=== PATIENT | female | born 1975 | race Caucasian/White ===

== ENCOUNTER 2019-10-19 05:19 | Inpatient (IN) | payer BC ==
[~2019-10-19] VITALS: Ht 170.2 cm; Wt 132.0 kg
[2019-10-19] VITALS (13 sets, daily range): BP systolic 125–186; BP diastolic 65–93
[2019-10-19] MEDS ORDERED: LR 1000ml 1,000 ML IVLG SCH (06:53)
--- NOTE | 2019-10-19 06:57 | Immediate Post-Op Evaluation ---
Immediate Post-Op Evalulation Immediate Post-Op Evalulation Procedure: Supracervical Open Hysterectomy with Bilateral Salpingectomy Date of Evaluation: Oct 19, 2019 Time of Evaluation: 12:05 IV Fluids: 1400 LR Blood Products: 0 Estimated Blood Loss: 75 Urinary Output: 200 Blood Pressure Systolic: 183 Blood Pressure Diastolic: 97 Pulse Rate: 92 Respiratory Rate: 16 O2 Sat by Pulse Oximetry: 98 Temperature (Fahrenheit): 97.3 Pain Score (1-10): 2 Nausea: No Vomiting: No Complications 0 Patient Status: awake, reacts, patent, extubated, none Hydration Status: adequate Dru Grams Ancef IV Given Within 1 Hr of Incision: Yes Time Given: 09:06 Gaston Ramsey MD Oct 19, 2019 06:57
[2019-10-19] MEDS ORDERED: cefOXitin Sod 2 GM in D5W 110 ML IVPB ONE (07:00)
[2019-10-19] MEDS ORDERED: Midazolam 2mg/2ml Inj IVP PRN (07:00)
[2019-10-19] MEDS ORDERED: HYDROcodone/Acetamin 7.5/325 tab ORAL PRN (07:00)
[2019-10-19] MEDS ORDERED: HYDROcodone/Acetamin 5/325 tab ORAL PRN ×2 (07:00→11:45)
[2019-10-19] MEDS ORDERED: Atropine Sulfate 0.4mg/ml inj IVP PRN (07:00)
[2019-10-19] MEDS ORDERED: LORazepam Inj 2mg/ml 1ml IV PRN (07:00)
[2019-10-19] MEDS ORDERED: oxyCODONE HCL/Acetaminophen 5/325mg ORAL PRN (07:00)
[2019-10-19] MEDS ORDERED: Ketorolac 30mg Inj IV PRN ×2 (07:00)
[2019-10-19] MEDS ORDERED: Meperidine 50mg/ml Inj(FOR RIGORS ONLY) IVP PRN (07:00)
[2019-10-19] MEDS ORDERED: Labetalol 5mg/ml 20ml vial IV PRN (07:00)
[2019-10-19] MEDS ORDERED: Metoclopramide 10mg/2ml Inj IVP PRN ×2 (07:00→11:45)
[2019-10-19] MEDS ORDERED: fentaNYL 100 mcg/2 mL IV PRN (07:00)
[2019-10-19] MEDS ORDERED: Acetaminophen (Non formulary) 100 ML IV ONE (07:00)
[2019-10-19] MEDS ORDERED: DiphenhydrAMINE 50mg/ml Inj IVP PRN (07:00)
[2019-10-19] MEDS ORDERED: PROVERA10 MG ORAL (07:03)
[2019-10-19] MEDS ORDERED: HYDROCODON-ACE1 EA16 ORAL (07:03)
[2019-10-19] MEDS ORDERED: AMLODIPINE BESY10 MG ORAL (07:03)
[2019-10-19] MEDS ORDERED: Duramorph PF 5mg/10ml amp ONE (07:06)
--- NOTE | 2019-10-19 07:18 | Anethesia Preoperative Eval ---
Anesthesia Pre-op PMH/ROS General Date of Evaluation: Oct 19, 2019 Time of Evaluation: 08:36 Anesthesiologist: Braulio ASA Score: ASA 3 Mallampati Score Class I : Soft palate, uvula, fauces, pillars visible Class II: Soft palate, uvula, fauces visible Class III: Soft palate, base of uvula visible Class IV: Only hard plate visible Mallampati Classification: Class III Surgeon: Zulma Diagnosis: Abd Pain Surgical Procedure: Supracervical Open Hysterectomy with Bilateral Salpingectomy Anesthesia History: none Family History: no anesthesia problems Allergies: Coded Allergies: No Known Allergies (Unverified , 10/14/19) Medications: see eMAR Patient NPO?: Yes NPO Date: Oct 18, 2019 NPO Time: 2100 Past Medical History Cardiovascular: Reports: HTN Gastrointestinal/Genitourinary: Reports: GERD Hematology/Immune: Reports: anemia Other: obesity - Morbid BMI 44 PSxH Narrative: Leep Anesthesia Pre-op Phys. Exam Physician Exam Last Vital Signs Date Time Temp Pulse Resp B/P (MAP) Pulse Ox O2 Delivery O2 Flow Rate FiO2 10/19/19 06:54 98.0 85 18 145/80 (101) 97 Constitutional: NAD Neurologic: CN 2-12 intact Cardiovascular: RRR Respiratory: CTA Gastrointestinal: S/NT/ND Airway Exam Mallampati Score: Class III MO: limited ROM: limited Teeth: missing, intact Anesthesia Pre-op A/P Risk Assessment & Plan Assessment: ASA 3 Plan: GA, SED, GlideScope Go Status Change Before Surgery: No Pre-Antibiotics Dru Grams Ancef IV Given Within 1 Hr of Incision: Yes Time Given: 09:06 Gaston Ramsey MD Oct 19, 2019 07:18
[2019-10-19] MEDS ORDERED: Lidocaine 1% MPF 10mg/ml 5ml ONE (07:22)
[2019-10-19] MEDS ORDERED: Dexamethasone 4mg/ml vial ONE (07:22)
[2019-10-19] MEDS ORDERED: Sodium Chloride 10ml vial INJ ONE (07:22)
[2019-10-19] MEDS ORDERED: fentaNYL 100 mcg/2 mL IV ONE ×3 (07:23→11:14)
[2019-10-19] MEDS ORDERED: Lidocaine 1% Plain 30 ml INJ ONE ×2 (07:24→10:36)
[2019-10-19] MEDS ORDERED: Ropivacaine 5mg/ml Vial 30ml INJ ONE (07:28)
[2019-10-19] MEDS ORDERED: LR 1000ml ONE (08:30)
[2019-10-19] MEDS ORDERED: Rocuronium Bromide 50mg/5ml Inj IV ONE (08:30)
[2019-10-19] MEDS ORDERED: Propofol 1,000mg/ 100ml btl IV ONE (08:30)
[2019-10-19] MEDS ORDERED: Sterile Water Irrig 1000ml IRRIG ONE (08:30)
[2019-10-19] MEDS ORDERED: NS Irrig 1000ml ONE (08:30)
--- NOTE | 2019-10-19 08:47 | Pre-Procedure Note/Attestation ---
Pre-Procedure Note/Attestation Complete Prior to Procedure Planned Procedure: not applicable Procedure Narrative: Supracervical Hysterectomy, bilateral Salpingectomy Indications for Procedure Pre-Operative Diagnosis: Large Uterine Myomas, severe menometrorrhagia, anemia Attestation I attest that I discussed the nature of the procedure; its benefits; risks and complications; and alternatives (and the risks and benefits of such alternatives ), prior to the procedure, with the patient (or the patient's legal solar sales representative and assessor). I attest that, if there was a reasonable possibility of needing a blood transfusion, the patient (or the patient's legal solar sales representative and assessor) was given the [facility] standardized written summary, pursuant to the [place] Blood Safety Act ([place] Health and Safety Code # 1645, as amended). I attest that I re-evaluated the patient just prior to the surgery and that there has been no change in the patient's H&P, except as documented below: Jonathan Maya MD Oct 19, 2019 08:47
--- NOTE | 2019-10-19 10:33 | NUR ---
*-* NO INSURANCE INFORMATION IN THE BAR UNABLE TO SEND CLINICALS OR REVIEWS *-*
[2019-10-19] MEDS ORDERED: Neostigmine 1mg/ml 10ml Inj ONE (10:51)
[2019-10-19] MEDS ORDERED: Glycopyrrolate 0.2mg/ml 1ml Vial ONE (10:51)
[2019-10-19] MEDS ORDERED: Milk of Magnesia 30ml Ud ORAL PRN (11:45)
--- NOTE | 2019-10-19 11:54 | Brief Operative Note ---
Immediate Post Operative Note Operative Note Chief Complaint: Uterine fibroids Pre-op Diagnosis: AUB-L (uterine fibroids) Procedure: Abdominal supracervical hysterectomy Post-op Diagnosis: Uterine fibroids, abnormal uterine bleeding (same as above) Post-op Diagnosis: same as pre-op Findings: consistent w/pre-op dx studies Surgeon: Jonathan Maya MD Paint Sprayer Sandblaster: Berenice Vickers MD Anesthesiologist: Gaston Ramsey MD Anesthesia: general, other - General and Spinal Specimen: yes Complications: none Fluids: 1400cc Crystalloid Estimated Blood Loss: volume - 75cc Drains: other - Durand catheter (200cc clear urine out at end of procedure) Packing: No Implant(s) used?: No Berenice Vickers M.D. Oct 19, 2019 11:54
[2019-10-19] MEDS: Hydromorphone 0.5mg/0.5ml inj IVP PRN ×2 (12:08→12:32)
--- NOTE | 2019-10-19 13:20 | NUR ---
NURSE NOTES: Patient arrived on unit via hospital bed. Stable. Denies pain or SOB. Patient oriented to room, call light, and unit. Patient instructed to use call light for assistance, verbalized understanding. Surgical dressing c/d/i. F/C secured to leg and patent. Patient is in bed in locked and lowest position with call light within reach. Will continue to monitor.
[2019-10-19] MEDS: HYDROcodone/Acetamin 10/325 tab ORAL PRN (14:33)
[2019-10-19] MEDS: Ketorolac 30mg Inj IM SCH ×2 (15:23→20:19)
[2019-10-19] MEDS: LR 1000ml 1,000 ML IV SCH ×2 (17:14→22:01)
[2019-10-19] MEDS: Docusate 100mg cap ORAL SCH (17:15)
[2019-10-19] MEDS: HYDROmorphone 1mg/ml Carpuject IVP PRN ×2 (17:21→23:44)
[2019-10-19] MEDS ORDERED: Ketorolac 30mg Inj IM SCH (18:00)
--- NOTE | 2019-10-19 19:27 | NUR ---
HAND-OFF: Report given to Fany DOLL. Patient is stable.
--- NOTE | 2019-10-19 19:30 | NUR ---
NURSE NOTES: Received report & pt from LAVON Byrne. Pt lying in bed, a&ox4, on O2 via NC @ 2LPM. No s/s of acute distress & c/o 6/10 pain at this time. Will give pain med when due & pt verbalized understanding. Surgical dressing C/D/I with icepack on. IV site intact with IVF running as ordered. Bed in lowest position, call light within reach. Will continue to monitor.
[2019-10-20] VITALS (9 sets, daily range): BP systolic 112–173; BP diastolic 60–88
[2019-10-20] MEDS: HYDROcodone/Acetamin 10/325 tab ORAL PRN ×4 (01:08→19:44)
[2019-10-20] MEDS: Ketorolac 30mg Inj IM SCH ×2 (02:55→08:59)
[2019-10-20] MEDS: HYDROmorphone 1mg/ml Carpuject IVP PRN ×4 (05:58→22:18)
[2019-10-20] MEDS: LR 1000ml 1,000 ML IV SCH ×3 (05:58→22:17)
--- NOTE | 2019-10-20 06:00 | NUR ---
NURSE NOTES: Removed basilio cath as ordered by . Toilet hat provided. Reminded pt to call RN of pt's first void. Pt verbalized understanding.
[2019-10-20 06:13] LABS: HEMATOCRIT 22.9 % (37.0-47.0); MEAN CORPUSCULAR VOLUME 70 FL (80-99); PLATELET COUNT 227 K/UL (150-450); RED BLOOD COUNT 3.28 M/UL (4.20-5.40); RED CELL DISTRIBUTION WIDTH 20.9 % (11.6-14.8); WHITE BLOOD COUNT 7.1 K/UL (4.8-10.8)
[2019-10-20 06:30] LABS: HEMOGLOBIN 6.8 G/DL (12.0-16.0)
[2019-10-20 06:39] LABS: ANION GAP 9 mmol/L (5-15); BLOOD UREA NITROGEN 13 mg/dL (7-18); CALCIUM 7.8 MG/DL (8.5-10.1); CARBON DIOXIDE 26 MMOL/L (21-32); CHLORIDE 103 MMOL/L (98-107); CREATININE 0.7 MG/DL (0.55-1.30); POTASSIUM 4.3 MMOL/L (3.5-5.1); SODIUM 138 MMOL/L (136-145)
--- NOTE | 2019-10-20 06:45 | NUR ---
NURSE NOTES: Received critical lab result for Hgb 6.8 from Sebas of lab. Called & paged Dr. Maya re: lab result. Awaiting call back. Charge nurse made aware.
--- NOTE | 2019-10-20 07:13 | NUR ---
HAND-OFF: Report given to LAVON Yuan. Rounds done. Told RN to f/u with Dr. Maya re: critical lab result Hgb 6.8
--- NOTE | 2019-10-20 07:15 | NUR ---
NURSE NOTES: Dr. Maya replied with, "Thanks". No new orders received at this time. AM RN made aware & also charge nurse Faith made aware
--- NOTE | 2019-10-20 07:15 | NUR ---
NURSE NOTES: WALKING ROUNDS DONE WITH OUTGOING RN. PATIENT ASLEEP BUT AROUSABLE. ABDOMINAL SURGICAL SITE ASSESSED; REMAINS C/D/I. SHE PAIN AT THIS TIME. RETURN DEMONSTRATION OF I/S SUCCESSFUL. QUESTIONS ANSWERED NEEDS MET AT THIS TIME. DISCUSSED PLAN OF CARE FOR THE DAY. VERBALIZED UNDERSTANDING. BED IN LOW AND LOCKED POSITION. CALL LIGHT WITHIN REACH.
[2019-10-20] MEDS: Docusate 100mg cap ORAL SCH ×2 (07:57→17:21)
--- NOTE | 2019-10-20 09:12 | NUR ---
CASE MANAGEMENT: INITIAL REVIEW 44YR OLD FEMALE HERE FOR ELECTIVE SURGERY CC: ABD PAIN; UTERINE FIBROIDS SI: AUB-L (UTERINE FIBROIDS) ;LARGE UTERINE MYOMAS, SEVERE MENOMETRORRHAGIA 98.0 85 18 145/80 97% ON RA IS: SUPRACERVICAL OPEN HYSTERECTOMY WITH BILATERAL SALPINGECTOMY : IN SURGERY NOW DCP: HOME WHEN MEDICALLY STABLE CASE MANAGEMENT: REVIEW 10/20/19 SI: POD#1 SP ABD SUPRACERVICAL HYSTERECTOMY 98.0 93 21 112/60 95% ON RA CA+7.8 H/H 6.8/22.9 IS: NORVASC PO QD TORADOL IM Q6HR : 3E MED SURG UNIT PLAN: ADI ENGLE
--- NOTE | 2019-10-20 09:45 | NUR ---
PT EVALUATION NOTE Patient seen for initial evaluation, see complete evaluation for details. Patient presents with generalized weakness and pain s/p surgical procedure which affects patient's ability to perform mobility tasks safely. Patient required min assist to come to sitting at the EOB and declined to participate in OOB activities due to pain. Patient will benefit from skilled inpatient PT intervention to address strength, balance and safety to return to prior level of function. Anticipate discharge home once medically cleared by MD. No DME needs anticipated at this time. Addendum: 10/20/19 at 1252 by EH WALTERS PT Amended: Links added.
--- NOTE | 2019-10-20 10:48 | General Progress Note ---
Progress Note Progress Note GYNECOLOGY PROGRESS NOTE - POD #1 44yo s/p supracervical hysterectomy, bilateral salpingectomy for AUB-L S: Patient having 9/10 pain, currently receiving Dilaudid. Has not ambulated. No flatus. Awaiting void. Some nausea last night, however tolerating regular diet without issue. O: Vitals reviewed, wnl Exam: Gen: NAD HEENT: OP clear, MMM CV: No tachycardia Pulm: No increased work of breathing Abd: soft, obese, mildly distended. Bandage removed, daniela c/d/i Ext: SCDs in place Labs: Test 10/20/19 04:55 White Blood Count 7.1 K/UL (4.8-10.8) Red Blood Count 3.28 M/UL (4.20-5.40) L Hemoglobin 6.8 G/DL (12.0-16.0) *L Hematocrit 22.9 % (37.0-47.0) L Mean Corpuscular Volume 70 FL (80-99) L Mean Corpuscular Hemoglobin 20.6 PG (27.0-31.0) L Mean Corpuscular Hemoglobin Concent 29.5 G/DL (32.0-36.0) L Red Cell Distribution Width 20.9 % (11.6-14.8) H Platelet Count 227 K/UL (150-450) Mean Platelet Volume 6.7 FL (6.5-10.1) Neutrophils (%) (Auto) % (45.0-75.0) Lymphocytes (%) (Auto) % (20.0-45.0) Monocytes (%) (Auto) % (1.0-10.0) Eosinophils (%) (Auto) % (0.0-3.0) Basophils (%) (Auto) % (0.0-2.0) Differential Total Cells Counted 100 Neutrophils % (Manual) 71 % (45-75) Lymphocytes % (Manual) 24 % (20-45) Monocytes % (Manual) 5 % (1-10) Eosinophils % (Manual) 0 % (0-3) Basophils % (Manual) 0 % (0-2) Band Neutrophils 0 % (0-8) Platelet Estimate Adequate Platelet Morphology Normal Polychromasia 1+ Hypochromasia 1+ Anisocytosis 2+ Microcytosis 1+ Sodium Level 138 MMOL/L (136-145) Potassium Level 4.3 MMOL/L (3.5-5.1) Chloride Level 103 MMOL/L (98-107) Carbon Dioxide Level 26 MMOL/L (21-32) Anion Gap 9 mmol/L (5-15) Blood Urea Nitrogen 13 mg/dL (7-18) Creatinine 0.7 MG/DL (0.55-1.30) Estimat Glomerular Filtration Rate > 60 mL/min (>60) Glucose Level 123 MG/DL (74-106) H Calcium Level 7.8 MG/DL (8.5-10.1) L A/P: 44yo s/p CHRISTOPHER, b/l salpingx, POD#1 - Concern for post-op anemia, Hgb 6.8 this AM however question dilution, will repeat CBC at noon and if Hgb <7 will transfuse 2u pRBCs - Toradol started this AM, goal is to wean off Dilaudid by tonight - Continue PO Ragan prn - SLIV after first void, if appropriate amount - Strongly encouraged ambulation - Continue SCDs while in bed - No flatus yet, will add simethicone prn for comfort - Patient desires d/c home as soon as possible, however has not yet post-op milestones, will await milestones prior to discharge Berenice Vickers M.D. Oct 20, 2019 10:48
[2019-10-20] MEDS ORDERED: Simethicone 80mg tab ORAL PRN (11:15)
[2019-10-20 12:20] LABS: HEMATOCRIT 25.7 % (37.0-47.0); HEMOGLOBIN 7.4 G/DL (12.0-16.0); MEAN CORPUSCULAR VOLUME 70 FL (80-99); PLATELET COUNT 258 K/UL (150-450); RED BLOOD COUNT 3.66 M/UL (4.20-5.40); RED CELL DISTRIBUTION WIDTH 20.5 % (11.6-14.8); WHITE BLOOD COUNT 6.2 K/UL (4.8-10.8)
--- NOTE | 2019-10-20 12:35 | NUR ---
NURSE NOTES: AMBULATED PATIENT AROUND NURSING UNIT. TOLERATED VERY WELL. GAIT STEADY, DENIES DIZZINESS. UP TO CHAIR FOR LUNCH TODAY. VOIDED 100 CC. CALL LIGHT WITHIN REACH.
--- NOTE | 2019-10-20 12:41 | 48 Hour Post Anesthesia Eval ---
Post Anesthesia Evaluation Procedure: Supracervical Open Hysterectomy with Bilateral Salpingectomy Date of Evaluation: Oct 20, 2019 Blood Pressure Systolic: 115 0: 78 Pulse Rate: 74 Respiratory Rate: 21 Temperature (Fahrenheit): 98 O2 Sat by Pulse Oximetry: 97 Airway: patent Nausea: No Vomiting: No Hydration Status: adequate Mental Status/LOC: patient returned to baseline Follow-up Care/Observations: 0 Follow-up care needed: N/A - further care as per primary team Fozia Madrigal MD Oct 20, 2019 12:41
--- NOTE | 2019-10-20 13:23 | NUR ---
NURSE NOTES: REPEAT CBC RECEIVED. H/H 7.4/25.7. RESULTS REPORTED TO DR. PORTER. NO INTERVENTIONS AT THIS TIME. WILL CONTINUE TO MONITOR PATIENT'S STATUS.
[2019-10-20] MEDS: Ketorolac 30mg Inj IV SCH ×2 (15:10→21:11)
--- NOTE | 2019-10-20 15:35 | NUR ---
HAND-OFF: Report given to TERE ERZA .
--- NOTE | 2019-10-20 15:40 | NUR ---
NURSE NOTES: received patient A/A/Ox4, ambulates and able to verbalize needs. On IVF on LH 20g. No c/o acute resp distress. No c/o pain/discomfort noted as this moment. will cont to monitor.
--- NOTE | 2019-10-20 19:21 | NUR ---
HAND-OFF: Report given to HOLGER.
--- NOTE | 2019-10-20 19:22 | NUR ---
NURSE NOTES: Received report & pt from LIBIA Canela. Pt lying in bed, a&ox4, in room air. No s/s of acute distress & c/o 10/10 pain at this time. Will give pain med when due & pt verbalized understanding. Surgical dressing C/D/I. IV site intact with IVF running as ordered. Bed in lowest position, call light within reach. Will continue to monitor.
[2019-10-21] VITALS: BP 156/77
[2019-10-21] MEDS: HYDROcodone/Acetamin 10/325 tab ORAL PRN ×4 (00:28→17:32)
--- NOTE | 2019-10-21 00:30 | NUR ---
NURSE NOTES: Pt voided without difficulty 450ml yellow urine. D/C'd IVF & converted to S/L as ordered by .
[2019-10-21] MEDS: Ketorolac 30mg Inj IV SCH ×4 (03:04→21:01)
[2019-10-21 04:00] VITALS: BP 146/76
--- NOTE | 2019-10-21 07:30 | NUR ---
HAND-OFF: Report given to LAVON Portillo. Rounds done.
[2019-10-21 08:00] VITALS: BP 158/86
--- NOTE | 2019-10-21 08:17 | NUR ---
NURSE NOTES: Received report from Fany RN, pt a/a/o x4 laying in bed with no signs of distress of distress or other issues at this time. surgical dressing dry and intact. pt stated that she feels bloated on assessment pt has abd distention. RN encourage her to walk around the unit. after a few laps pt stating that is felling better and was able to pass flatus. IV on the right hand. gauge #22 heplock. call light within reach. bed in lowest position. side rales up x2. I will f/u as needed.
[2019-10-21 09:07] LABS: HEMATOCRIT 25.1 % (37.0-47.0); HEMOGLOBIN 7.3 G/DL (12.0-16.0); MEAN CORPUSCULAR VOLUME 70 FL (80-99); PLATELET COUNT 233 K/UL (150-450); RED CELL DISTRIBUTION WIDTH 20.6 % (11.6-14.8); WHITE BLOOD COUNT 6.5 K/UL (4.8-10.8)
[2019-10-21] MEDS: Docusate 100mg cap ORAL SCH ×2 (09:07→17:30)
[2019-10-21 10:02] LABS: ANION GAP 10 mmol/L (5-15); BLOOD UREA NITROGEN 10 mg/dL (7-18); CALCIUM 8.5 MG/DL (8.5-10.1); CARBON DIOXIDE 25 MMOL/L (21-32); CHLORIDE 101 MMOL/L (98-107); CREATININE 0.9 MG/DL (0.55-1.30); POTASSIUM 3.7 MMOL/L (3.5-5.1); SODIUM 136 MMOL/L (136-145)
--- NOTE | 2019-10-21 11:52 | NUR ---
CASE MANAGEMENT: REVIEW 10/21/2019 SI: POD#2 SP ABD SUPRACERVICAL HYSTERECTOMY 97.6 81 18 158/86 96% ON RA H/H 7.3/25.1 IS: NORVASC PO QD TORADOL IM Q6HR : 3E MED SURG UNIT PLAN: PT KADIE
[2019-10-21 12:00] VITALS: BP 124/78
--- NOTE | 2019-10-21 14:38 | NUR ---
*-* INSURANCE *-* ALL CLINICALS AND REVIEWS HAVE BEEN FAXED TO: [employer] REF# [id number] RAMIRO: KRAIG P: [phone] OPT. 5 F: [phone]
[2019-10-21 16:00] VITALS: BP 158/77
--- NOTE | 2019-10-21 19:25 | NUR ---
HAND-OFF: Report given to Jennifer DOLL, pt in stable condition.
[2019-10-21 20:00] VITALS: BP 139/70
[2019-10-21] MEDS: Zolpidem 5mg tab ORAL PRN ×2 (22:01→23:03)
[2019-10-22] MEDS: Ketorolac 30mg Inj IV SCH ×4 (03:22→20:29)
[2019-10-22 06:29] LABS: HEMATOCRIT 23.8 % (37.0-47.0); MEAN CORPUSCULAR VOLUME 70 FL (80-99); PLATELET COUNT 216 K/UL (150-450); RED CELL DISTRIBUTION WIDTH 20.8 % (11.6-14.8); WHITE BLOOD COUNT 4.6 K/UL (4.8-10.8)
[2019-10-22 06:45] LABS: HEMOGLOBIN 6.8 G/DL (12.0-16.0)
--- NOTE | 2019-10-22 06:45 | NUR ---
NURSE NOTES: Sebas from the lab called hemoglobin 6.8, hematocrit 23.8. Primary nurse LAVON Rodriguez aware.
[2019-10-22 06:52] LABS: ALANINE AMINOTRANSFERASE 19 U/L (12-78); ALBUMIN 2.7 G/DL (3.4-5.0); ALBUMIN/GLOBULIN RATIO 0.8 (1.0-2.7); ALKALINE PHOSPHATASE 60 U/L (46-116); ANION GAP 9 mmol/L (5-15); ASPARTATE AMINO TRANSFERASE 18 U/L (15-37); BILIRUBIN,TOTAL 0.2 MG/DL (0.2-1.0); BLOOD UREA NITROGEN 10 mg/dL (7-18); CALCIUM 8.6 MG/DL (8.5-10.1); CARBON DIOXIDE 27 MMOL/L (21-32); CHLORIDE 103 MMOL/L (98-107); CREATININE 0.7 MG/DL (0.55-1.30); POTASSIUM 3.9 MMOL/L (3.5-5.1); SODIUM 139 MMOL/L (136-145)
--- NOTE | 2019-10-22 07:23 | NUR ---
HAND-OFF: Report given to Bandar, endorsed critical hemoglobin of 6.[address] Noriega was paged at [phone].
[2019-10-22 08:00] VITALS: BP 157/75
--- NOTE | 2019-10-22 08:01 | NUR ---
NURSE NOTES: Received report from Jennifer DOLL, pt a/a/o x4 laying in bed with no signs of distress or other issues at this time. surgical incision clean, dry and intact. IV on the right hand gauge #22 heplock. call light within reach, bed in lowest position, side rales up x2. I will f/u as needed. - Pt's HGB: 6.8 (critical value) MD is aware and we will carry on orders.
[2019-10-22] MEDS: Docusate 100mg cap ORAL SCH ×2 (09:03→16:54)
[2019-10-22 12:00] VITALS: BP 148/74
[2019-10-22] MEDS: HYDROcodone/Acetamin 10/325 tab ORAL PRN ×2 (12:08→16:54)
--- NOTE | 2019-10-22 13:30 | NUR ---
NURSE NOTES: started fist unit of PRBC at 12:20 VS:98.3, 150/76, 73 after 15min temp: 98.5, 122/78, HR: 75. pt was educated regarding possible side effects of transfusion. pt was able to verbalized understanding and has call light within reach. I will f/u as needed.
--- NOTE | 2019-10-22 15:56 | NUR ---
CASE MANAGEMENT: REVIEW 10/22/2019 SI: POD#3 SP ABD SUPRACERVICAL HYSTERECTOMY 98.3 90 16 157/75 95% ON RA H/H 6.8/23.8 WBC 4.6 BG 119 IS: NORVASC PO QD TORADOL IM Q6HR : 3E MED SURG UNIT PLAN: BLOOD TX FOR LOW BLOOD CT
[2019-10-22 16:00] VITALS: BP 124/77
--- NOTE | 2019-10-22 17:00 | NUR ---
NURSE NOTES: first unit of PRBC finished, pt was able to tolerated with no signs of distress or other issues at this time. VS: temp: 98.8, 163/80, 80. we will start second bag once BP is more under control. I will f/u as needed.
[2019-10-22] MEDS ORDERED: LR 1000ml ONE (18:18)
--- NOTE | 2019-10-22 19:35 | NUR ---
HAND-OFF: Report given to Jennifer DOLL. pt in stable condition. - Incoming nurse is aware that second unit of PRBC needs to be done. - during my shift pt is able to ambulate around the unit with steady gait.
[2019-10-22] MEDS ORDERED: LORazepam 1mg tab ORAL PRN (19:45)
[2019-10-22 20:00] VITALS: BP 141/79
[2019-10-22] MEDS: Zolpidem 5mg tab ORAL PRN ×2 (21:29→21:43)
[2019-10-23 00:55] VITALS: BP 149/72
[2019-10-23] MEDS: Ketorolac 30mg Inj IV SCH ×2 (03:08→08:47)
[2019-10-23 04:30] VITALS: BP 159/84
[2019-10-23] MEDS: HYDROcodone/Acetamin 10/325 tab ORAL PRN (05:07)
--- NOTE | 2019-10-23 05:33 | NUR ---
NURSE NOTE: 10/23/19 0200 Pt is A/Ox4 with stable VS. Orders reviewed and physical assessment completed. 1 unit of blood was transfused starting at 5 and ending at 010. NS was ran for 30 mins, flushed with NS 10mL. Pt is now heplock, PIV dressing is clean, dry, and intact. Ativan PO given x1 for muscle spasms in the lower abdomen. Will continue to monitor.
--- NOTE | 2019-10-23 07:46 | NUR ---
NURSE NOTES: Received report from Jennifer DOLL, pt a/a/o x4 laying in bed with no signs of distress or other issues at this time. surgical incision clean, dry and intact. IV on the right hand gauge #22 heplock. call light within reach, bed in lowest position, side rales up x2. I will f/u as needed. - pt got her second unit or PRBC last night around 01:00. pt was able to tolerated well with no adverse reaction.
[2019-10-23 08:00] VITALS: BP 169/97
[2019-10-23] MEDS: Docusate 100mg cap ORAL SCH (08:47)
[2019-10-23 09:26] LABS: ALANINE AMINOTRANSFERASE 25 U/L (12-78); ALBUMIN 2.9 G/DL (3.4-5.0); ALBUMIN/GLOBULIN RATIO 0.7 (1.0-2.7); ALKALINE PHOSPHATASE 64 U/L (46-116); ANION GAP 9 mmol/L (5-15); ASPARTATE AMINO TRANSFERASE 16 U/L (15-37); BILIRUBIN,TOTAL 0.8 MG/DL (0.2-1.0); BLOOD UREA NITROGEN 12 mg/dL (7-18); CALCIUM 9.2 MG/DL (8.5-10.1); CARBON DIOXIDE 26 MMOL/L (21-32); CHLORIDE 102 MMOL/L (98-107); CREATININE 0.8 MG/DL (0.55-1.30); SODIUM 137 MMOL/L (136-145)
[2019-10-23 09:29] LABS: BASOPHILS % (AUTO) 1.5 % (0.0-2.0); EOSINOPHILS % (AUTO) 3.2 % (0.0-3.0); HEMATOCRIT 28.7 % (37.0-47.0); HEMOGLOBIN 8.7 G/DL (12.0-16.0); LYMPHOCYTES % (AUTO) 24.3 % (20.0-45.0); MEAN CORPUSCULAR VOLUME 70 FL (80-99); MONOCYTES % (AUTO) 5.8 % (1.0-10.0); NEUTROPHILS % (AUTO) 65.3 % (45.0-75.0); PLATELET COUNT 250 K/UL (150-450); RED BLOOD COUNT 4.07 M/UL (4.20-5.40); RED CELL DISTRIBUTION WIDTH 20.4 % (11.6-14.8); WHITE BLOOD COUNT 5.8 K/UL (4.8-10.8)
[2019-10-23 12:00] VITALS: BP 171/84
--- NOTE | 2019-10-23 12:50 | NUR ---
NURSE NOTES: Received discharge order. belongings and discharge instructions given to patient. also given her home mediation [place] it was delivered from [email or web address]. IV removed prior to d/c. pt's friend will provide transportation. pt left the floor with no signs of distress or other issues at this time. I will f/u as needed.
--- NOTE | 2019-10-24 02:45 | Operative Note - Dictated ---
SURGEON: Jonathan Maya M.D. PREOPERATIVE DIAGNOSIS: Large uterine fibroid with a protruding submucosal fibroid through the cervix. POSTOPERATIVE DIAGNOSIS: Large uterine fibroid with a protruding submucosal fibroid through the cervix. PROCEDURES PERFORMED: 1. Transcervical removal of the protruding fibroid and abdominal supracervical hysterectomy. 2. Bilateral salpingectomy. PROCEDURE IN DETAIL: After all the appropriate consents were signed, the patient was brought to the operating room, placed on the table in supine position. General endotracheal anesthesia was induced without complication. The patient was then placed in the dorsal lithotomy position. Perineum, vagina, and abdomen were prepped and draped in the usual fashion for the procedure. The patient was then examined under anesthesia. The myoma, which was protruding through the cervix, was palpated vaginally. This myoma was obstructing the access to the cervix and was now grasped and with single-tooth tenaculum. At this time, additional tenaculum were applied to the myoma and a portion was applied to the instruments and the myoma was torsed and it was gradually from its stalk in the endocervical canal. At this time, the cervix was visualized once the fibroid was completely . The procedure then continued at its abdominal portion where after the gloves were changed, a Pfannenstiel incision was made. It was continued through the subcutaneous tissue and the fascia was identified. The fascia was incised bilaterally to expose the rectus muscle. The rectus muscle was parted in the midline. The procedure then continued with entering of the peritoneum sharply and a large uterus could be identified. Allis abdominal retractor was placed in the pelvis and the uterus was brought into the opening. At this time plain, round ligaments were clamped, cut, and suture ligated bilaterally. The bladder flap was developed bilaterally sharply. At this time, the procedure continued with visualizing the tubes bilaterally. The tubes were grasped and gradually first on the right then on the left from their base on the ovaries. Then, the mesosalpinx was transected to completely release the tubes. The tubes were bilaterally grasped, elevated, and clamped with bilaterally. Tubes were excised and they were eventually removed with the uterus. At this time, the utero-ovarian ligaments were clamped, cut, and suture ligated bilaterally. The uterine vessels were identified and Maryse clamps were placed first on the right then on the left. The uterines were transected and suture ligated using 0 Vicryl suture. At this time, the procedure continued with identifying the internal cervical os and transected using Sara scissors. The cervix was dilated due to the fibroid which was previously removed. This area was now closed using 0 Vicryl suture running along the internal cervical os to close the cervix. The uterus was extricated and the ovaries were left intact. The patient was now evaluated. Pelvis was irrigated and complete hemostasis was noted in the pelvis. At this time, the peritoneum was closed using a 2-0 Vicryl. The muscle was approximated in the midline and the fascia was closed using 0 Vicryl suture bilaterally. Subcutaneous tissue was approximated and the skin was closed with stainless steel daniela. The patient was placed back in a supine position, awakened from general anesthesia and transferred to the Recovery in excellent condition. Jonathan Maya M.D. DR: FELIX JOB#: [id number] CC:
--- NOTE | 2019-10-25 08:31 | NUR ---
*-* INSURANCE *-* DISCHARGE INATRUCTION HAVE RAIZA FAXED NO DISCHARGE SUMMARY YET. [employer] REF# [id number] CLARITZAM: KRAIG P: [phone] OPT. 5 F: [phone]
--- NOTE | 2019-10-25 19:09 | Discharge Summary ---
Discharge Summary Discharge Summary _ DATE OF ADMISSION: 10/19/2019 DATE OF DISCHARGE: 10/23/2019 DISCHARGED BY: Dr. Jonathan Maya BRIEF HOSPITAL COURSE: Patient is a 44-year-old female abnormal uterine bleeding was admitted 2017 and underwent abdominal supracervical hysterectomy, bilateral salpingectomy. Postoperatively, patient was admitted for postop care. She had pain and was given Dilaudid for pain management. She was placed on SCDs for DVT prophylaxis. She had nausea however was able to tolerate diet. CBC the following day showed hemoglobin 6.8 and hematocrit 23.9. Repeat CBC that day showed 7.4 hemoglobin, hematocrit 26. Volume status monitored. She was eventually tapered off Dilaudid and was given Toradol. On 10/22/2019, hemoglobin again dropped to 6.8, hematocrit 24. She was transfused 2 units packed RBC blood transfusion. Hemoglobin level was stable. She was voiding well. She was ambulating well. She was cleared for discharge home. FINAL DIAGNOSES: Large uterine fibroid with a protruding submucosal fibroid through the cervix. PROCEDURES PERFORMED: 1. Transcervical removal of the protruding fibroid and abdominal supracervical hysterectomy. 2. Bilateral salpingectomy. DISPOSITION: Patient was discharged home. DISCHARGE MEDICATIONS: Refer to Discharge Medication List. DISCHARGE INSTRUCTIONS: Follow-up in a week. I have been assigned to complete a discharge summary on this account, I was not involved with the patient's management.--LASHELL Tolbert Jacqueline Robles NP Oct 25, 2019 19:09
== END 2019-10-23 12:50 | disposition home or self-care (01) | DRG 742 ==
LOC: SDSOVERFLO 05:34 → 3E 12:29
DX: D25.0 Submucous leiomyoma of uterus (principal); Z68.41 Body mass index [BMI] 40.0-44.9, adult; I10 Essential (primary) hypertension; K21.9 Gastro-esophageal reflux disease without esophagitis; D64.9 Anemia, unspecified; E66.01 Morbid (severe) obesity due to excess calories
CPT/HCPCS: 36415; 80048; 80053; 84703; 85007; 85025; 86850; 86900; 86901; 86920; 87081; 94003; 94150; J2405; J2710; J2765